=== PATIENT | male | born 1955 ===

== ENCOUNTER 2023-09-13 13:21 | Emergency (ER) | payer OTHER ==
[~2023-09-13] VITALS: Ht 182.9 cm; Wt 70.3 kg
[2023-09-13 13:44] VITALS: BP 137/92
[2023-09-13] MEDS ORDERED: Lidocaine/Tetracaine/Epinephr 4 ML SOLN TOP ONE (14:10)
[2023-09-13] MEDS ORDERED: Acetaminophen 500 MG Tab PO ONE (14:10)
[2023-09-13] MEDS ORDERED: Diphth,Pertuss(Acell),Tet Vac 0.5 ML VIAL IM ONE (16:00)
[2023-09-13] MEDS ORDERED: BACITO TOP (16:34)
== END 2023-09-13 16:45 | disposition home or self-care (01) ==
LOC: ER 13:21
DX: S01.01XA Laceration without foreign body of scalp, initial encounter (principal); Y04.8XXA Assault by other bodily force, initial encounter
CPT/HCPCS: 12002; 70450; 90471; 90715; 99284-25; A9270